=== PATIENT | male | born 1950 | race Caucasian/White ===

== ENCOUNTER 2019-11-12 09:17 | Day surgery (SDC) | payer OTHER ==
[2019-11-11 17:53] LABS: Potassium 3.9 mmol/L (3.5-5.1)
--- NOTE | 2019-11-11 18:04 | RAD REPORT ---
EXAM DESCRIPTION: RAD - Chest Pa And Lat (2 Views) - 11/11/2019 5:36 pm CLINICAL HISTORY: preop Chest pain. COMPARISON: No comparisons FINDINGS: The lungs are clear. The heart is mildly enlarged No displaced fractures. IMPRESSION: Mild cardiomegaly.
--- NOTE | 2019-11-11 22:59 | EKG ---
Test Date: 2019-11-11 Test Time: 16:00:57 Stitching Machine Operator: JIM MEASUREMENT RESULTS: Intervals: Rate: 57 MI: 200 QRSD: 112 QT: 422 QTc: 410 [place]: P: 20 MI: 200 QRS: -38 T: 23 INTERPRETIVE STATEMENTS: Sinus bradycardia Left axis deviation Abnormal ECG No previous ECG available for comparison Electronically Signed On 11-11-19 22:58:28 CDT by Rafael Berkowitz
[2019-11-12 09:32] LABS: Absolute Lymphocytes (CBC) 1.5 K/uL (0.7-4.9); Hematocrit 41.2 % (39.6-49.0); Lymphocytes % 22.6 % (15.3-44.8); MPV 9.3 fL (7.6-11.3); RBC Red Blood Cell Count 4.92 M/uL (4.33-5.43)
[2019-11-12] MEDS ORDERED: Ringers Lactate 1,000 ML IV ONE (09:39)
[2019-11-12] MEDS ORDERED: CEFAZOLIN/SWI 1gm 1 GM/10 ML SYR ONE (09:39)
[2019-11-12 09:55] VITALS: O2SAT 96
[2019-11-12] MEDS ORDERED: LIDOCAINE 1% MPF 30 ML VIAL ONE (09:59)
[2019-11-12] MEDS ORDERED: ONDANSETRON 4 MG/2 ML VIAL ONE (09:59)
[2019-11-12] MEDS ORDERED: propofoL 200 MG/20 ML VIAL IV ONE ×2 (09:59→10:23)
[2019-11-12] MEDS ORDERED: LIDOCAINE 2% MPF 5 ML VIAL ONE (09:59)
[2019-11-12] MEDS ORDERED: KETOROLAC 30 MG/ML INJ ONE (10:46)
--- NOTE | 2019-11-12 11:07 | P.BOP ---
Preoperative diagnosis: infected back subQ mass with abscess Postoperative diagnosis: same Primary procedure: Excisional biopsy of infected back subQ mass with abscess 4x4cm Estimated blood loss: <10cc Specimen: mass Findings: mass with cellulitis and abscess Anesthesia: General Complications: None Transferred to: Recovery Room Condition: Good
[2019-11-12 11:38] VITALS: BP 161/76; TEMP 98.7
--- NOTE | 2019-11-12 22:27 | DS ---
Date of Discharge: 11/12/2019 Diagnosis: Infected back subcutaneous mass with abscess. Procedure: Excisional biopsy of infected back and subcutaneous mass with abscess. Disposition: Home. Activity: As tolerated, no heavy lifting. Followup: Follow up in my office a 1 week. Call for appointment [phone]. Wet-to-dry normal saline daily. 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 Medications: Include Bactrim DS p.o. b.i.d., and Tylenol No.3 q.4 hours p.r.n. pain. DEN[place]/NIC Voice ID: [id number] Report ID: [id number]
--- NOTE | 2019-11-12 22:27 | OP ---
Date of Procedure: 11/12/2019 Surgeon: Darrion Malhotra MD Preoperative Diagnosis: Infected back subcutaneous mass with cellulitis and abscess. Postoperative Diagnosis: Infected back subcutaneous mass with cellulitis and abscess. Procedure: Excisional biopsy of infected back subcutaneous mass with drainage of an abscess. Mass a bout 4 x 4 cm. Estimated Blood Loss: Less than 10 mL. Specimens: Mass and purulent discharge culture. Finding: Mass with cellulitis and abscess. Kyrie pus. Anesthesia: MAC plus local. Indications: This is the case of a 69-year-old patient, who comes to us with above diagnosis, booked in OR emergently for removal of this infected back mass with cellulitis. The benefits, alternatives , and risks of excision were fully explained which include, but are not limited to infection, bleedin g, damage to adjacent structures, anesthesia complications, recurrence, [place], and even . He also understands this may not relieve his symptoms, he might need more than one surgical intervention, he will require wound care. He signed a consent. The area of concern was marked by me and the patient in the holding room. Description Of Procedure: Patient was brought to the operating room, placed in supine position. Ane sthesia was done without complication. Then, the patient was placed in lateral decubitus position wi th proper protection. A time-out was called. After that, we proceeded to do a wedge incision of the area to remove the entire mass which was infected that led us into a collection of pus that was unde rneath the mass. The area was irrigated, hemostasis obtained, and then the area was packed with wet- to-dry dressing after injecting with local anesthetic. Patient tolerated the procedure well. Petros condon was sent to recovery in stable condition. [place]/NIC Voice ID: [id number] Report ID: [id number]
== END 2019-11-12 11:40 | disposition home or self-care (01) ==
LOC: OR 09:17
PROVIDERS: ATTEND Surgery
PROC: 0JB70ZZ Excision of Back Subcutaneous Tissue and Fascia, Open Approach (ICD-10-PCS; principal; 2019-11-12 11:15)
DX: L72.0 Epidermal cyst (principal); L02.212 Cutaneous abscess of back [any part, except buttock and flank]; L03.312 Cellulitis of back [any part except buttock and flank]; I10 Essential (primary) hypertension; E78.00 Pure hypercholesterolemia, unspecified; Z83.3 Family history of diabetes mellitus; Z82.49 Family history of ischemic heart disease and other diseases of the circulatory system; Z80.0 Family history of malignant neoplasm of digestive organs; Z80.8 Family history of malignant neoplasm of other organs or systems
CPT/HCPCS: 93005; 87070; 85025; 80048; 36415 ×2; 87205; 88304; 87075; 87077; 87186; 71046; 11404; J2704; J0690; J7120; J2405

== ENCOUNTER 2024-10-19 00:41 | Emergency (ER) | payer OTHER ==
--- OUTSIDE RECORDS SUMMARY | 2024-10-19 00:43 | XMS REPORT | Continuity of Care Document ---
Author Name Unknown Address [address] [place] [address] [address] [place] [address] [facility] Address [address] [facility] [address] [place] [address] Care Team Providers Care Programming Specialist Name Role Phone NURSE, NURSE Attending Clinician Unavailable Payers Payer Name Policy Type Policy Number Effective Date Expirati on Date Source Social History Social Habit Start Date Stop Date Quantity Comments Source Sex Assigned At Male [facility] Smoking Status Start Date Stop Date Source Unknown if ever smoked [facility] Procedures Procedure Date / Time Performed Performing Clinicia n Source PFIZER-ADM SARSCOV2 30MCG/0.3ML 2020-09-20 00:00:00 [facility] Encounters Start Date/Time End Date/Time Encounter Type Admission Type Attending Clinicians Care Facility Care Department Encounter ID Source 2020-10-17 11:15:00 2020-10-17 11:15:00 Outpatient NURSE, NURSE [facility] [id number] [facility] 2020-10-17 11:15:00 2020-10-17 11:15:00 Outpatient NURSE, NURSE [facility] [id number] [facility] 2020-09-20 16:51:00 2020-09-20 16:51:00 Outpatient NURSE, NURSE [facility] [id number] [facility] 2020-09-20 16:51:00 2020-09-20 16:51:00 Outpatient NURSE, NURSE [facility] [id number] [facility]
[2024-10-19] MEDS ORDERED: FAMOTIDINE 20 MG/2 ML VIAL IV ONE (01:24)
[2024-10-19] MEDS ORDERED: MORPHINE 4 MG/ML SYR ONE (01:24)
[2024-10-19 01:31] LABS: Absolute Basophils 0.1 K/uL (0-0.5); Absolute Eosinophils 0.1 K/uL (0-0.5); Absolute Lymphocytes (CBC) 1.2 K/uL (0.7-4.9); Absolute Monocytes 1.6 K/uL (0.1-1.3); Absolute Neutrophil 6.6 K/uL (1.8-8.0); Hematocrit 40.3 % (39.6-49.0); Hemoglobin 13.9 g/dL (13.6-17.9); Lymphocytes % 12.5 % (15.3-44.8); MCH 29.7 pg (27.0-35.0); MCHC 34.4 g/dL (32.0-36.0); MCV 86.2 fL (80-100); MPV 8.9 fL (7.6-11.3); Monocytes % 16.8 % (3.3-12.3); Neutrophils % 68.7 % (41.7-73.7); Nucleated Red Blood Cells % 0.2 % (0-0); Platelets 145 thou/uL (152-406); RBC Red Blood Cell Count 4.68 M/uL (4.33-5.43); Red Cell Distribution Width 13.5 % (12.1-15.2)
[2024-10-19 01:48] LABS: Albumin/Globulin Ratio 1.3 (1.1-1.8); Anion Gap 9.3 mEq/L (5.0-15.0); Bilirubin Total 0.5 mg/dL (0.2-1.0); Potassium 3.3 mEq/L (3.5-5.1)
[2024-10-19] MEDS ORDERED: ONDANSETRON 4 MG/2 ML VIAL ONE (02:03)
--- NOTE | 2024-10-19 03:25 | RAD REPORT ---
EXAM DESCRIPTION: Abdomen Pelvis W Contrast RadLex: CT ABDOMEN PELVIS WITH IV CONTRAST CLINICAL HISTORY: 74 years Male; ABD PAIN; IV ONLY TECHNIQUE: CT of the abdomen and pelvis [with] intravenous contrast. All CT scans at this facility use dose modulation, iterative reconstruction, and/or weight based dosi ng when appropriate to reduce radiation dose to as low as reasonably achievable. COMPARISON: None. FINDINGS: Lower thorax: Bibasilar atelectasis. Abdomen: Stomach: Small hiatal hernia. Liver: Subcentimeter hypodensity in the left hepatic lobe, too small to characterize. No intrahepatic ductal distention. Gallbladder: Nondistended Pancreas: Within normal limits Spleen: Within normal limits Right kidney: No hydronephrosis. Multiple renal stones. Left kidney: Mild to moderate hydronephrosis. Delayed nephrogram. 2 mm stone at the ureterovesicular junction. Adrenal glands: Within normal limits Vascular structures: Within normal limits Nodes: No lymphadenopathy by size criteria Pelvis: Small bowel: No significant distention. Appendix: Within normal limits Colon: No distention or acute pericolonic edema. Peritoneum: No free intraperitoneal fluid or air. Bones: No acute bone findings. Bladder: Unremarkable. Reproductive organs: No acute findings. Soft tissues: Fat-containing bilateral inguinal hernias. IMPRESSION: 1. Mild to moderate left-sided hydronephrosis with a 2 mm stone at the left ureterovesicular juncti on. 2. Right-sided nephrolithiasis. Electronically signed by: Riya Butler MD 10/19/2024 03:16 AM [facility] Z9 Due to temporary technical issues with the PACS/Hunie reporting system, reports are being carla d by the in-house radiologist without review as a courtesy to ensure prompt reporting the interpreting radiologist is fully responsible for the content of the report. Transcribed Date/Time: 10/19/2024 3:24 AM
--- NOTE | 2024-10-19 03:37 | EDPHYS ---
Physician Documentation [facility] Name: Chito Luna Age: 74 yrs Sex: Male : 1950 Arrival Date: 10/19/2024 Time: 00:41 Bed 4 Private MD: ED Physician Cosmo Naylor HPI: 10/19 01:37 This 74 yrs old Male presents to ER via Ambulatory with complaints of Abdominal Pain, ms3 Abdominal Swelling. 01:37 74-year-old male with past medical history of lymphoma, hypertension, hyperlipidemia ms3 presents the emergency department for left lower quadrant abdominal pain that began at 7 PM. Patient states he took Pepto-Bismol and omeprazole without relief. Patient describes the pain as burning. Patient's notes patient also had similar symptoms last weekend. Patient endorses nausea. He denies vomiting, diarrhea, fevers, chills.. 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 - Infectious Disease History:: Denies. - Social history:: Smoking status: Patient denies any tobacco usage or history of. Patient/guardian denies using alcohol, street drugs. ROS: 01:37 Constitutional: Negative for fever, and chills. Cardiovascular: Negative for chest ms3 pain, and palpitations. Respiratory: Negative for shortness of breath, cough, wheezing, and pleuritic chest pain, 01:37 Skin: Negative for injury, rash, and discoloration, 01:37 Abdomen/GI: Positive for abdominal pain, nausea, Negative for vomiting, diarrhea, constipation, Exam: 01:37 Constitutional: This is a well developed, well nourished patient who is awake, alert, ms3 and in no acute distress. Cardiovascular: Regular rate and rhythm with a normal S1 and S2. No gallops, murmurs, or rubs. Normal PMI, no JVD. No pulse deficits. Respiratory: Lungs have equal breath sounds bilaterally, clear to auscultation and percussion. No rales, rhonchi or wheezes noted. No increased work of breathing, no retractions or nasal flaring. Skin: Warm, dry with normal turgor. Normal color with no rashes, no lesions, and no evidence of cellulitis. 01:37 Abdomen/GI: Inspection: abdomen appears normal, Bowel sounds: normal, Palpation: moderate abdominal tenderness, in the left lower quadrant, Vital Signs: 01:01 BP 161 / 80; Pulse 59; Resp 16 S; Temp 97.8(O); Pulse Ox 97% on R/A; Weight 90.72 kg lg3 (R); Height 5 ft. 10 in. ; Pain 9/10; 01:53 BP 150 / 67; Pulse 58; Resp 16; Pulse Ox 99% ; br2 03:19 BP 153 / 78; Pulse 48; Resp 16; Pulse Ox 95% ; cp4 01:01 Body Mass Index 28.70 (90.72 kg, 177.8 cm) lg3 01:01 Pain Scale: Adult lg3 MDM: 01:06 Medical Screening Exam initiated ms3 01:37 Differential diagnosis: bowel obstruction, diverticulitis, non-specific abd pain. ms3 04:16 Data reviewed: vital signs, nurses notes, lab test result(s), radiologic studies, and ms3 as a result, I will discharge patient. I considered the following discharge prescriptions or medication management in the emergency department Medications were administered in the Emergency Department. See MAR. Counseling: I had a detailed discussion with the patient and/or guardian regarding the historical points, exam findings, and any diagnostic results supporting the discharge/admit diagnosis, lab results, radiology results, the need for outpatient follow up, to return to the emergency department if symptoms worsen or persist or if there are any questions or concerns that arise at home. Medication response: morphine markedly relieved the patient's pain. Symptoms have improved. Response to treatment: the patient's symptoms have markedly improved after treatment, and as a result, I will discharge patient. Special discussion: I discussed with the patient/guardian in detail that at this point there is no indication for admission to the hospital. It is understood, however, that if the symptoms persist or worsen the patient needs to return immediately for re-evaluation. ED course: Discussed CT scan showing ureterolithiasis with patient and his . Patient symptoms improved with morphine in the emergency department. Patient pain well-controlled. Patient given prescription for hydrocodone 5-325 milligram 1 p.o. every 6 hours as needed pain. Patient to follow-up Dr. Segal in 2 to 3 days. Patient and his understand and agree with plan. All questions were answered. Return precautions discussed include fevers, chills, vomiting, worsening symptoms, or any other concerns.. 10/19 00:48 Order name: CBC with Diff; Complete Time: 01:36 ms3 10/19 00:48 Order name: CMP; Complete Time: 01:48 ms3 10/19 00:48 Order name: Lipase; Complete Time: 01:48 ms3 10/19 01:06 Order name: CT Abd/Pelvis - IV Contrast Only ms3 10/19 00:48 Order name: IV Saline Lock; Complete Time: 01:28 ms3 10/19 00:48 Order name: Labs collected and sent; Complete Time: ms3 Administered Medications: 01:28 Drug: Famotidine IVP 20 mg IVP once; dilute with 10 mL 0.9% NaCl; give over 2 minutes cp4 Route: IVP; Site: left antecubital; 02:00 Follow up: Response: No adverse reaction br2 01:28 Drug: morphine IVP or IV 4 mg IVP once over 4 mins Route: IVP; Infused Over: 4 mins; cp4 Site: left antecubital; 02:00 Follow up: Response: No adverse reaction br2 02:05 Drug: Ondansetron IVP 4 mg IVP once; over 2 minutes Route: IVP; Site: left antecubital; cp4 03:49 Follow up: Response: No adverse reaction br2 Disposition Summary: 10/19/24 03:37 Discharge Ordered Notes: Location: Home ms3 Condition: Stable ms3 Diagnosis - Kidney stone ms3 Followup: ms3 - With: Juvencio Segal MD - When: 2 - 3 days - Reason: Recheck today's complaints Discharge Instructions: - Discharge Summary Sheet ms3 - Kidney Stones ms3 Forms: - Medication Reconciliation Form ms3 - Antibiotic Education ms3 - Prescription Opioid Use ms3 - Patient Portal Instructions ms3 - Leadership Thank You Letter ms3 Prescriptions: - tamsulosin 0.4 mg Oral capsule - take 1 capsule ORAL route every 24 hours; 20 capsule; Refills: 0, Product ms3 Selection Permitted Signatures: Dispatcher [employer] Melanie Saldaña RN RN lg3 Cosmo Naylor DO DO ms3 Cassandra Dias cp4 Tova Meier RN br2 Corrections: (The following items were deleted from the chart) 00:48 00:48 CBC+H.LAB.BRZ ordered. EDMS EDMS 00:48 00:48 COMPREHENSIVE METABOLIC PANEL+C.LAB.BRZ ordered. EDMS EDMS 00:48 00:48 LIPASE+C.LAB.BRZ ordered. EDMS EDMS 01:07 01:07 Abdomen Pelvis W Con+CT.RAD.BRZ ordered. EDMS EDMS
--- NOTE | 2024-10-19 03:37 | ER ---
Nurse's Notes [facility] Name: Chito Luna Age: 74 yrs Sex: Male : 1950 Arrival Date: 10/19/2024 Time: 00:41 Bed 4 Private MD: Diagnosis: Kidney stone Presentation: 10/19 01:01 Chief complaint: Patient states: left sided abdominal pain onset 1900 with nausea. took lg3 pepto and omeprazole with no relief. Coronavirus screen: Client denies travel out of the [place] in the last 14 days. At this time, the client does not indicate any symptoms associated with coronavirus-19. Ebola Screen: No symptoms or risks identified at this time. Initial Sepsis Screen: Does the patient meet any 2 criteria? No. Patient's initial sepsis screen is negative. Does the patient have a suspected source of infection? No. Patient's initial sepsis screen is negative. Risk Assessment: Do you want to hurt yourself or someone else? Patient reports no desire to harm self or others. Onset of symptoms was October 18, 2024. 01:01 Method Of Arrival: Ambulatory lg3 01:01 Acuity: VITOR 3 lg3 Triage Assessment: 01:04 General: Appears in no apparent distress. uncomfortable, Behavior is calm, cooperative. lg3 Pain: Complains of pain in left upper quadrant and left lower quadrant. EENT: No deficits noted. No signs and/or symptoms were reported regarding the EENT system. Neuro: No deficits noted. Level of Consciousness is awake, alert, obeys commands, Oriented to person, place, time, situation. Cardiovascular: No deficits noted. Denies chest pain, shortness of breath, Capillary refill < 3 seconds Clubbing of nail beds is absent JVD is absent Patient's skin is warm and dry. Respiratory: No deficits noted. Airway is patent Respiratory effort is even, unlabored, Respiratory pattern is regular, symmetrical. GI: Abdomen is round non-distended, Abd is soft X 4 quads Abdomen is tender to palpation in left upper quadrant and left lower quadrant Reports lower abdominal pain, upper abdominal pain, nausea. : No signs and/or symptoms were reported regarding the genitourinary system. Derm: No deficits noted. No signs and/or symptoms reported regarding the dermatologic system. Skin is intact, is healthy with good turgor, Skin is dry, Skin is normal, Skin temperature is warm. Musculoskeletal: No deficits noted. No signs and/or symptoms reported regarding the musculoskeletal system. Circulation, motion, and sensation intact. Range of motion: intact in all extremities. 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 - Infectious Disease History:: Denies. - Social history:: Smoking status: Patient denies any tobacco usage or history of. Patient/guardian denies using alcohol, street drugs. Screenin:07 [facility] ED Fall Risk Assessment (Adult) History of falling in the last 3 months, lg3 including since admission No falls in past 3 months (0 pts) Confusion or Disorientation No (0 pts) Intoxicated or Sedated No (0 pts) Impaired Gait No (0 pts) Mobility Assist Device Used No (0 pt) Altered Elimination No (0 pt) Score/Fall Risk Level 0 - 2 = Low Risk Oriented to surroundings, Maintained a safe environment, Educated pt \T\ family on fall prevention, incl call for assistance when getting out of bed, Assessed \T\ reinforced patient's understanding of fall precautions. Abuse screen: Denies threats or abuse. Denies injuries from another. Nutritional screening: No deficits noted. Tuberculosis screening: No symptoms or risk factors identified. Assessment: 01:07 General: see triage assessment. GI: Bowel sounds present X 4 quads. lg3 01:15 Reassessment: Patient and/or family updated on plan of care and expected duration. Pain br2 level reassessed. Patient is alert, oriented x 3, equal unlabored respirations, skin warm/dry/pink. Pain: Complains of pain in left lower quadrant Pain radiates to left lower back Pain currently is 6 out of 10 on a pain scale. Quality of pain is described as aching. : Reports urinary frequency. 02:08 Reassessment: Patient actively vomiting after returning from CT. cp4 03:34 Reassessment: Patient and/or family updated on plan of care and expected duration. Pain br2 level reassessed. Patient is alert, oriented x 3, equal unlabored respirations, skin warm/dry/pink. Patient states feeling better. Patient states symptoms have improved. Vital Signs: 01:01 BP 161 / 80; Pulse 59; Resp 16 S; Temp 97.8(O); Pulse Ox 97% on R/A; Weight 90.72 kg lg3 (R); Height 5 ft. 10 in. ; Pain 9/10; 01:53 BP 150 / 67; Pulse 58; Resp 16; Pulse Ox 99% ; br2 03:19 BP 153 / 78; Pulse 48; Resp 16; Pulse Ox 95% ; cp4 01:01 Body Mass Index 28.70 (90.72 kg, 177.8 cm) lg3 01:01 Pain Scale: Adult lg3 ED Course: 00:44 Patient arrived in ED. jj6 00:48 Cosmo Naylor DO is Attending Physician. ms3 01:04 Triage completed. lg3 01:04 Arm band placed on left wrist. lg3 01:07 Patient taken to lobby, ambulatory, steady gait. lg3 01:07 Patient has correct armband on for positive identification. lg3 01:32 Tova Meier, STACY is Primary Nurse. br2 01:32 Inserted saline lock: 20 gauge in left antecubital area, using aseptic technique. Blood br2 collected. Flushed with 10 mL NS. 01:59 CT Abd/Pelvis - IV Contrast Only In Process Unspecified. EDMS 03:35 Juvencio Segal MD is Referral Physician. ms3 03:46 IV discontinued, intact, bleeding controlled, No redness/swelling at site. Pressure br2 dressing applied. Administered Medications: 01:28 Drug: Famotidine IVP 20 mg IVP once; dilute with 10 mL 0.9% NaCl; give over 2 minutes cp4 Route: IVP; Site: left antecubital; 02:00 Follow up: Response: No adverse reaction br2 01:28 Drug: morphine IVP or IV 4 mg IVP once over 4 mins Route: IVP; Infused Over: 4 mins; cp4 Site: left antecubital; 02:00 Follow up: Response: No adverse reaction br2 02:05 Drug: Ondansetron IVP 4 mg IVP once; over 2 minutes Route: IVP; Site: left antecubital; cp4 03:49 Follow up: Response: No adverse reaction br2 Medication: 01:07 VIS not applicable for this client. lg3 Outcome: 03:37 Discharge ordered by MD. ms3 03:46 Discharged to home via wheelchair, br2 03:46 Condition: improved 03:46 Discharge instructions given to patient, Instructed on discharge instructions, follow up and referral plans. Demonstrated understanding of instructions, follow-up care, Prescriptions given X 1, 04:03 Patient left the ED. br2 Signatures: Dispatcher [employer] EDMS Melanie Forrester RN RN lg3 Cosmo Naylor, DO ms3 Jana Hoskinsj6 Cassandra Dias cp4 Tova Meier RN RN br2
[2024-10-19 04:25] VITALS: TEMP 97.8
[2024-10-19 04:29] VITALS: BP 153/78; O2SAT 95
== END 2024-10-19 04:03 | disposition home or self-care (01) ==
LOC: ER 00:41
DX: N20.0 Calculus of kidney (principal); I10 Essential (primary) hypertension
CPT/HCPCS: 85025; 36415; 83690; 80053; 74177; Q9967; J2405